=== PATIENT | male | born 1930 | race Caucasian/White ===

== ENCOUNTER 2018-07-27 23:08 | Emergency (ER) | payer MEDICARE ==
[~2018-07-27] VITALS: Ht 180.3 cm; Wt 86.2 kg
== END 2018-07-28 00:59 | disposition home or self-care (01) ==
LOC: ER 23:08
DX: S01.81XA Laceration without foreign body of other part of head, initial encounter (principal); Z79.82 Long term (current) use of aspirin; W18.30XA Fall on same level, unspecified, initial encounter
CPT/HCPCS: 12011; 70450; 99284-25

== ENCOUNTER 2019-01-09 13:32 | Observation (INO) | payer MEDICARE ==
[~2019-01-09] VITALS: Ht 182.9 cm; Wt 53.5 kg
[2019-01-09] MEDS ORDERED: FURO20 (13:54)
[2019-01-09] MEDS ORDERED: Carbidopa-Levo1 EAC1 PO (13:54)
[2019-01-09] MEDS ORDERED: FLUO10 PO (13:54)
[2019-01-09] MEDS ORDERED: SPIR25 PO (13:54)
[2019-01-09] MEDS ORDERED: Aspirin EC325 MG PO (13:54)
[2019-01-09 14:04] LABS: Bilirubin, Urine Neg (Neg); Blood, Urine Neg (Neg); Glucose Qualitative, Urine Neg (Neg); Ketones, Urine 1+ (Neg); Leukocyte Esterase, Urine 2+ (Neg); Nitrite, Urine Pos (Neg); Protein, Urine 1+ (Neg); Urobilinogen, Urine 2+ (Normal)
[2019-01-09 14:08] LABS: BASOPHILS ABSOLUTE AUTO 0.04 K/mm3 (0.00-0.23); BASOPHILS PERCENT AUTO 1 % (0-2); EOSINOPHILS ABSOLUTE AUTO 0.01 K/mm3 (0.00-0.68); EOSINOPHILS PERCENT AUTO 0 % (0-6); Hematocrit 36.1 % (37.0-53.0); Hemoglobin 11.6 g/dL (13.5-17.5); IMMATURE GRAN ABSOLUTE AUTO 0.02 K/mm3 (0.00-0.10); IMMATURE GRAN PERCENT AUTO 0 % (0-1); LYMPHOCYTES ABSOLUTE AUTO 1.47 K/mm3 (0.84-5.20); LYMPHOCYTES PERCENT AUTO 17 % (21-46); MONOCYTES ABSOLUTE AUTO 1.07 K/mm3 (0.16-1.47); MONOCYTES PERCENT AUTO 12 % (4-13); Mean Corpuscular HGB 32.2 pg (26.0-34.0); Mean Corpuscular HGB Conc 32.1 g/dL (31.5-36.5); Mean Corpuscular Volume 100 fL (80-100); Mean Platelet Volume 10.2 fL (9.1-12.4); NEUTROPHILS ABSOLUTE AUTO 6.22 K/mm3 (1.96-9.15); NEUTROPHILS PERCENT AUTO 71 % (41-73); Platelet Count 156 K/mm3 (150-400); RDW Coefficient Variation 12.7 % (11.7-14.2); RDW Standard Deviation 46.9 fL (35.1-46.3); White Blood Cell Count 8.83 K/mm3 (4.00-11.30)
[2019-01-09 14:19] LABS: Appearance, Urine Clear (Clear); Color, Urine Yellow (P-Yellow); Red Blood Cells, Urine 0-2 /hpf (0-2); White Blood Cells, Urine 25-50 /hpf (0-5)
[2019-01-09 14:20] LABS: Bacteria Many /hpf; Squamous Epithelial Cells Not Seen /hpf (Few)
[2019-01-09 14:23] LABS: Alanine Aminotransfer (ALT/SGP 20 U/L (12-78); Albumin, Blood 2.7 g/dL (3.4-5.0); Albumin/Globulin Ratio 0.8 (0.8-1.8); Alk Phos 63 U/L (50-136); Anion Gap 5 mmol/L (6-16); Aspartate Aminotrans (AST/SGOT 48 U/L (12-37); Bilirubin, Total 0.9 mg/dL (0.1-1.0); Blood Urea Nitrogen 21 mg/dL (8-24); Bun/Creatinine Ratio 27.8 (12.0-20.0); CO2, Blood 31 mmol/L (21-32); Calcium, Blood 8.3 mg/dL (8.5-10.1); Chloride, Blood 107 mmol/L (98-108); Creatinine, Blood 0.76 mg/dL (0.60-1.20); Globulin, Blood 3.5 g/dL (2.2-4.0); Glomerular Filtration Rate >60 (60-); Glucose, Blood 109 mg/dL (70-99); Potassium, Blood 3.7 mmol/L (3.5-5.5); Sodium, Blood 143 mmol/L (136-145); Total Protein, Blood 6.2 g/dL (6.4-8.2)
[2019-01-09] MEDS ORDERED: **INCOMPLETE MED REC (15:46)
[2019-01-09 17:09] LABS: Percent Saturation 14.6 % (20.0-50.0)
[2019-01-10 05:09] LABS: BASOPHILS ABSOLUTE AUTO 0.04 K/mm3 (0.00-0.23); BASOPHILS PERCENT AUTO 1 % (0-2); EOSINOPHILS ABSOLUTE AUTO 0.01 K/mm3 (0.00-0.68); EOSINOPHILS PERCENT AUTO 0 % (0-6); Hematocrit 37.4 % (37.0-53.0); Hemoglobin 11.5 g/dL (13.5-17.5); IMMATURE GRAN ABSOLUTE AUTO 0.02 K/mm3 (0.00-0.10); IMMATURE GRAN PERCENT AUTO 0 % (0-1); LYMPHOCYTES ABSOLUTE AUTO 1.29 K/mm3 (0.84-5.20); LYMPHOCYTES PERCENT AUTO 15 % (21-46); MONOCYTES ABSOLUTE AUTO 1.02 K/mm3 (0.16-1.47); MONOCYTES PERCENT AUTO 12 % (4-13); Mean Corpuscular HGB 31.6 pg (26.0-34.0); Mean Corpuscular HGB Conc 30.7 g/dL (31.5-36.5); Mean Platelet Volume 10.3 fL (9.1-12.4); NEUTROPHILS ABSOLUTE AUTO 6.16 K/mm3 (1.96-9.15); NEUTROPHILS PERCENT AUTO 72 % (41-73); Platelet Count 141 K/mm3 (150-400); RDW Coefficient Variation 12.8 % (11.7-14.2); RDW Standard Deviation 48.8 fL (35.1-46.3); Red Blood Cell Count 3.64 M/mm3 (4.30-5.90); White Blood Cell Count 8.54 K/mm3 (4.00-11.30)
[2019-01-10 05:12] LABS: Mean Corpuscular Volume 103 fL (80-100)
[2019-01-10 05:36] LABS: Albumin, Blood 2.6 g/dL (3.4-5.0); Anion Gap 5 mmol/L (6-16); Blood Urea Nitrogen 16 mg/dL (8-24); Bun/Creatinine Ratio 25.6 (12.0-20.0); CO2, Blood 29 mmol/L (21-32); Calcium, Blood 8.2 mg/dL (8.5-10.1); Chloride, Blood 109 mmol/L (98-108); Creatinine, Blood 0.62 mg/dL (0.60-1.20); Glomerular Filtration Rate >60 (60-); Glucose, Blood 92 mg/dL (70-99); Potassium, Blood 3.9 mmol/L (3.5-5.5); Sodium, Blood 143 mmol/L (136-145)
--- NOTE | 2019-01-10 07:48 | NUR ---
SHIFT SUMMARY RECEIVED REPORT FROM ED RN. ARRIVED TO MEDICAL UNIT @ 2152 VIA STRETCHER. RESPONDS TO VERBAL STIMULI. WILL ANSWER QUESTIONS APPROPRIATELY, BUT SLOW TO RESPOND. NO C/O PAIN/DISCOMFORT. COMPLETED IV FLUID INFUSION AFTER ARRIVAL. PICTURES TAKEN AND PLACED IN CHART OF WOUNDS TO BILATERAL HEELS; WELL MEPILEX PLACED FOR PREVENTION; NOTED DEEP TISSUE INJURIES. LIVES AT HOME WITH AND HAS HAD INCREASED FALLS AT HOME. TELE RUNNING SINUS JACKIE @ 58 WITH FIRST DEGREE AV BLOCK, BBB, AND PAC. APPEARED TO REST MUCH OF SHIFT. VSS/AFEBRILE. NO ACUTE CHANGES OVERNIGHT. CONTINUED TO MONITOR T/O SHIFT. REPORT GIVEN TO ONCOMING RN.
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
--- NOTE | 2019-01-10 19:50 | NUR ---
SHIFT SUMMARY: NO ACUTE CHANGES TO REPORT THIS SHIFT. PT ALERT; ORIENTED TO SELF AND FAMILY. INITIALLY CALM & COOEPRATIVE WITH CARE; INCREASING AGITATION IN LATE AFTERNOON. MEDICATED FOR PAIN/LEG SPASM PER EMAR. TELE IN PLACE; SINUS BRADYCARDIA c 1ST DEG BLOCK c PACs. PT/OT/ST EVALS ORDERED. REPORT GIVEN TO ONCOMING RN.
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
--- NOTE | 2019-01-11 17:38 | NUR ---
PATIENT TAKEN OUT OF RESTRAINTS THIS AM AND PATIENT HAS BEEN CALM AND COOPERATIVE WITH CARE. FAMILY AT BEDSIDE THROUGHOUT THE SHIFT AND ASSIST WITH CARE. PATIENT INCONTINENT OF URINE, ATTENDS IN PLACE. TELE D/C, VSS THIS SHIFT. LUNGS CLEAR, ON RA. ELEVATING HEELS TO HELP WOUNDS HEAL. TRAMODOL GIVEN X2 THIS SHIFT FOR R LEG PAIN. TAKES PILLS WHOLE IN APPLESAUCE. UP WITH FWW, GAIT BELT AND 2 ASSIST. NO ACUTE CHANGES THIS SHIFT.
--- NOTE | 2019-01-12 06:46 | NUR ---
SHIFT SUMMARY PT IS AN 88 Y/O MALE, ADMITTED FOR FALLS. HE IS A&O X SELF AND FAMILY ONLY. PT'S DAUGHTER REMAINED IN THE ROOM THROUGH THE NIGHT. HE APPEARED COMFORTABLE, WITH NO S/S OF PAIN OR DISTRESS. VITAL SIGNS REMAINED STABLE DURING THE NIGHT. NO ACUTE CHANGES IN PT CONDITION NOTED. WILL CONTINUE TO MONITOR AND TREAT PER EMAR.
[2019-01-12] MEDS ORDERED: Acetaminophen325 M1 PO (11:53)
[2019-01-12] MEDS ORDERED: Amoxicillin500 MG PO (11:53)
[2019-01-12] MEDS ORDERED: CULTURELLE1 EACH PO (11:54)
[2019-01-12] MEDS ORDERED: BISA10S PR (11:54)
[2019-01-12] MEDS ORDERED: DOCU100 PO (11:54)
[2019-01-12] MEDS ORDERED: QUET25 PO (11:55)
[2019-01-12] MEDS ORDERED: TRAM50 PO (11:56)
--- NOTE | 2019-01-12 16:22 | NUR ---
PATIENT D/C'D TO [facility] VIA [facility]. REPORT CALLED TO ARMAND JESSICA. HARD SCRIPT FOR TRAMADOL AND D/C PACKET GIVEN TO SENIOR PROPERTY MANAGER.
== END 2019-01-12 16:23 ==
LOC: ER 13:32 → MEDS 13:33 → ERHOLD 13:33 → MEDS 13:34 → ER 16:16 → ERHOLD 16:16 → MEDS 16:16 → ERHOLD 21:00 → MEDS 21:00 → ENPENDDIS 01-12 11:02 → MEDS 01-12 16:23
PROVIDERS: Emergency Medicine; ADMIT Internal Medicine
DX: R53.1 Weakness (principal); G20 Parkinson's disease; N39.0 Urinary tract infection, site not specified; B96.20 Unspecified Escherichia coli [E. coli] as the cause of diseases classified elsewhere; I50.9 Heart failure, unspecified; I25.10 Atherosclerotic heart disease of native coronary artery without angina pectoris; E86.0 Dehydration; E46 Unspecified protein-calorie malnutrition; I48.91 Unspecified atrial fibrillation; I25.2 Old myocardial infarction; Z79.899 Other long term (current) drug therapy; Z79.82 Long term (current) use of aspirin; Z87.891 Personal history of nicotine dependence; Z68.1 Body mass index [BMI] 19.9 or less, adult; W19.XXXA Unspecified fall, initial encounter
CPT/HCPCS: 36415; 70450; 71046; 73562-RT; 80053; 80069; 81001; 82550; 82607; 82728; 82746; 83540; 83550; 84443; 85025; 87077; 87086; 87186; 92526; 92610; 93005; 93010; 96361; 96365; 96372-59; 97110; 97116; 97162; 97166; 97530; 99285-25; J0696; J1650; J7030; J7050